=== PATIENT | female | born 1995 | race Two or more races ===

== ENCOUNTER 2024-02-11 22:37 | Emergency (ER) | payer OTHER ==
[~2024-02-11] VITALS: Ht 157.5 cm; Wt 72.2 kg
[~2024-02-11 22:37] MED LIST: ALBUPOW26
[2024-02-11 23:02] VITALS: BP 130/98; PULSE 75; RESP 16; O2SAT 97
[2024-02-12] MEDS ORDERED: IBUP-1454 PO (16:24)
[2024-02-12] MEDS ORDERED: CYCL-837 PO (16:24)
== END 2024-02-11 23:42 | disposition left against medical advice (07) ==
LOC: ER 22:37
DX: R51.9 Headache, unspecified (principal); M54.2 Cervicalgia; Z53.21 Procedure and treatment not carried out due to patient leaving prior to being seen by health care provider; V89.2XXA Person injured in unspecified motor-vehicle accident, traffic, initial encounter; Y93.I9 Activity, other involving external motion; Y92.89 Other specified places as the place of occurrence of the external cause; Y99.8 Other external cause status

== ENCOUNTER 2024-02-12 15:08 | Emergency (ER) | payer OTHER ==
[~2024-02-12] VITALS: Ht 157.5 cm; Wt 70.5 kg
[2024-02-12 15:17] VITALS: BP 113/89; PULSE 86; RESP 18; O2SAT 96
[2024-02-12] MEDS ORDERED: IBUP-1454 PO (16:24)
[2024-02-12] MEDS ORDERED: CYCL-837 PO (16:24)
== END 2024-02-12 16:24 | disposition home or self-care (01) ==
LOC: ER 15:08
DX: S13.4XXA Sprain of ligaments of cervical spine, initial encounter (principal); S20.219A Contusion of unspecified front wall of thorax, initial encounter; V43.62XA Car passenger injured in collision with other type car in traffic accident, initial encounter; Y93.89 Activity, other specified; Y92.488 Other paved roadways as the place of occurrence of the external cause; Y99.8 Other external cause status